=== PATIENT | female | born 1950 | race Two or more races ===

== ENCOUNTER 2025-08-24 08:36 | Outpatient (CLI) | payer OTHER ==
[2025-08-24 08:59] LABS: Hematocrit 44.2 % (36.0-46.0); Hemoglobin 14.9 g/dL (12.2-16.2); Mean Corpuscular Hemoglobin 31.1 pg (28.0-32.0); Mean Corpuscular Volume 92.2 fL (80.0-100.0); Nucleated Red Blood Cells % 0.1 %; Urine Protein, UAD Negative (Negative)
[2025-08-24 10:00] LABS: Alanine Aminotransferase 28 U/L (7-40); Albumin 4.8 g/dL (3.2-4.8); Alkaline Phosphatase 73 U/L (46-116); Anion Gap 9 (5-15); BUN/Creatinine Ratio 13.0 (10.0-20.0); Blood Urea Nitrogen 12 mg/dL (9-23); Calcium 10.0 mg/dL (8.7-10.4); Carbon Dioxide 29 mmol/L (20-31); Chloride 105 mmol/L (98-107); Cholesterol 178 mg/dL (< 200); Magnesium 2.2 mg/dL (1.6-2.6); Potassium 4.7 mmol/L (3.5-5.1); Sodium 143 mmol/L (136-145); Total Protein 8.1 g/dL (5.7-8.2)
[2025-08-24 10:01] LABS: Bilirubin, Total 0.6 mg/dL (0.2-1.0)
[2025-08-24 10:05] LABS: Iron 93.0 ug/dL (50-170)
[2025-08-24 10:08] LABS: Total Iron Binding Capacity 283.0 ug/dL (250-425)
[2025-08-24 10:12] LABS: Glucose 107 mg/dL (74-106); HDL Cholesterol 65 mg/dL (40-59); Triglycerides 178 mg/dL (< 150)
[2025-08-24 11:04] LABS: Uric Acid 5.2 mg/dL (3.1-7.8)
== END 2025-08-24 17:00 | disposition home or self-care (01) ==
LOC: LAB 08:36
PROVIDERS: ATTEND Family Medicine
DX: E11.42 Type 2 diabetes mellitus with diabetic polyneuropathy (principal); R00.2 Palpitations; Z00.00 Encounter for general adult medical examination without abnormal findings
CPT/HCPCS: 36415; 80053; 80061; 81001; 82306; 82607; 83036; 83540; 83550; 83735; 84443; 84550; 85025